=== PATIENT | male | born 1985 | race Two or more races ===

== ENCOUNTER 2017-04-04 11:34 | Emergency (ER) | payer OTHER ==
--- NOTE | 2017-04-04 12:30 | EDM.PDOC ---
ED HPI GENERAL MEDICAL PROBLEM - General Chief Complaint: Laceration Stated Complaint: RIGHT MIDDLE FINGER CUT WORK RELATED Time Seen by Provider: 04/04/17 11:35 Source of Information: Reports: Patient History Limitations: Reports: No Limitations - History of Present Illness INITIAL COMMENTS - FREE TEXT/NARRATIVE: HISTORY AND PHYSICAL: History of present illness: Patient is a 29-year-old male who presents to the emergency room with complaints of crush injury to the right second digit. Patient reports he was working with some heavy pipe and one fell onto the affected finger. Patient presented to the emergency room immediately after the injury. There is an obvious deformity noted to the affected finger with an open laceration noted to the palmar side. Reports that the finger is numb and he is unable to bend at either joint. Denies any other finger involvement. Able to move other fingers and wrist without difficulty. Patient states that his tetanus is updated within the last 4 years. Review of systems: As per history of present illness and below otherwise all systems reviewed and negative. Past medical history: As per history of present illness and as reviewed below otherwise noncontributory. Surgical history: As per history of present illness and as reviewed below otherwise noncontributory. Social history: No reported history of drug or alcohol abuse. Family history: As per history of present illness and as reviewed below otherwise noncontributory. Physical exam: Gen.: Nontoxic appearing 29-year-old male. Able to speak in full sentences without shortness of breath. Alert and oriented HEENT: Atraumatic, normocephalic, pupils reactive, negative for conjunctival pallor or scleral icterus, mucous membranes moist, throat clear, neck supple, nontender, trachea midline. Lungs: Clear to auscultation, breath sounds equal bilaterally, chest nontender. Heart: S1S2, regular, negative for clicks, rubs, or JVD. Abdomen: Soft, nondistended, nontender. Negative for masses or hepatosplenomegaly. Negative for costovertebral tenderness. Pelvis: Stable nontender. Genitourinary: Deferred. Rectal: Deferred. Extremities: Obvious deformity noted to the right second distal digit at the DIP joint, there is an open laceration on the palmar side below the DIP joint. Patient has limited movement of the affected finger. No other finger or extremity involvement. Neurovascular unremarkable. Neuro: Awake, alert, oriented. Cranial nerves II through XII unremarkable. Cerebellum unremarkable. Motor and sensory unremarkable throughout. Exam nonfocal. Upon patient's arrival a digital block was performed for comfort. Adding on x- ray prior to doing any interventions at this time. 1240- Dr. Shama Velasquez was consulted on this patient and will see the patient prior to performing a closed reduction. Patient has currently declined the Dilaudid, as he reports he is "fine at this time" and the digital block was "good enough". 1330- Dr. Velasquez is here to evaluate patient at this time. 1415- Dr. Velasquez repaired the affected finger and applied her own dressing. She has instructed me to provide the patient with a prescription for Keflex 500 mg 4 times a day 10 days and Hearne 11/23/24 one to 2 tabs every 4-6 hours as needed for pain dispense #40. She would like to see the patient on Monday and her nurse , Nabila, will call the patient with a clinic time. This was all discussed and reviewed with the patient he is aware and agreeable. Diagnostics: Finger and hand x-ray Therapeutics: Digital block IV fluid, Zofran, Ancef, Dilaudid Impression: Dislocation Definitive disposition and diagnosis as appropriate pending reevaluation and review of above. Onset: Today Onset Date: 04/04/17 Duration: Minutes: Location: Reports: Upper Extremity, Right - Related Data Allergies Allergy/AdvReac Type Severity Reaction Status Date / Time No Known Allergies Allergy Verified 04/04/17 13:38 Home Meds: Home Meds . [No Known Home Meds] 04/04/17 [History] ED ROS GENERAL - Review of Systems Review Of Systems: ROS reveals no pertinent complaints other than HPI. ED EXAM, SKIN/RASH Exam: See Below (See dictation) Course - Orders/Labs/Meds Meds: Medications Discontinued Medications Generic Name Dose Route Start Last Admin Trade Name Freq PRN Reason Stop Dose Admin Bupivacaine HCl 10 ml 04/04/17 13:45 Sensorcaine-Mpf 0.25% INJECT 04/04/17 13:46 ONETIME ONE Hydromorphone HCl 0.5 mg 04/04/17 12:32 Dilaudid IV 04/04/17 12:33 ONETIME ONE Cefazolin Sodium 2,000 mg/ 100 mls @ 100 mls/hr 04/04/17 12:33 04/04/17 13:40 Sodium Chloride IV 04/04/17 13:32 Not Given ONETIME ONE Sodium Chloride 1,000 mls @ 999 mls/hr 04/04/17 12:32 04/04/17 13:40 Normal Saline IV 04/04/17 13:32 Not Given STAT ONE Cefazolin Sodium/Dextrose 2 gm 50 mls @ 100 mls/hr 04/04/17 13:15 04/04/17 13 :15 / Premix IV 04/04/17 13:44 100 mls/hr ONETIME ONE Administration Lidocaine/Epinephrine 20 ml 04/04/17 13:46 Xylocaine 1% With Epinephrine 1:100,000 INJECT 04/04/17 13:47 ONETIME ONE Ondansetron HCl 4 mg 04/04/17 12:32 04/04/17 13:40 Zofran IVPUSH 04/04/17 12:33 Not Given ONETIME ONE Departure - Departure Time of Disposition: 14:43 Disposition: Home, Self-Care 01 Clinical Impression: Laceration Finger dislocation Qualifiers: Encounter type: initial encounter Qualified Code(s): S63.259A - Unspecified dislocation of unspecified finger, initial encounter - Discharge Information Referrals: PCP,None [Primary Care Provider] - Forms: ED Department Discharge Additional Instructions: The following information is given to patients seen in the emergency department who are being discharged to home. This information is to outline your options for follow-up care. We provide all patients seen in our emergency department with a follow-up referral. The need for follow-up, as well as the timing and circumstances, are variable depending upon the specifics of your emergency department visit. If you don't have a primary care physician on staff, we will provide you with a referral. We always advise you to contact your personal physician following an emergency department visit to inform them of the circumstance of the visit and for follow-up with them and/or the need for any referrals to a consulting specialist. The emergency department will also refer you to a specialist when appropriate. This referral assures that you have the opportunity for followup care with a specialist. All of these measure are taken in an effort to provide you with optimal care, which includes your followup. Under all circumstances we always encourage you to contact your private physician who remains a resource for coordinating your care. When calling for followup care, please make the office aware that this follow-up is from your recent emergency room visit. If for any reason you are refused follow-up, please contact the [facility] emergency department at and ask to speak to the emergency department charge nurse. [facility] Specialty clinic-Plastic Surgery and Hand Surgery Professional [address] [address] 1. These keep your dressing on as has directed. You have been in a prescription for Keflex please take this as directed over the next 10 days to prevent infection. A prescription for [place]ne which is a narcotic pain reliever as been scribed to as well he may take 1-2 tablets every 4-6 hours as needed for pain (#40) if he should have breakthrough pain he may take ibuprofen over- the-counter do not take additional acetaminophen. 2. Dr. Velasquez's nurse to call you with an appointment time. She would like to see you on Monday. 3. If he should have any concerns or signs of infection please follow-up with your primary care provider or the ED as needed as discussed.
[2017-04-04] MEDS ORDERED: Sodium Chloride 0.9% 1,000 ML IV ONE (12:32)
[2017-04-04] MEDS ORDERED: Ondansetron 4 MG/2 ML SDV IVPUSH ONE (12:32)
[2017-04-04] MEDS ORDERED: HYDROmorphone 1 MG/ML Syringe IV ONE (12:32)
--- NOTE | 2017-04-04 12:53 | CR ---
EXAMINATION: Right hand and right second digit HISTORY: crush injury COMPARISON: None TECHNIQUE: 2 views of the right hand and 3 views of the right second digit. FINDINGS: There is posterior dislocation of the second digit at the PIP joint. There is no definite f racture noted. Bone mineralization is otherwise unremarkable. The remaining osseous structures and shannon int spaces appear preserved. IMPRESSION: Posterior dislocation of the second digit the PIP joint.
[2017-04-04] MEDS ORDERED: ceFAZolin 2 GM in Premix Bag 1 BAG IV ONE (13:15)
[2017-04-04] MEDS ORDERED: Bupivacaine 0.25% 10 ML SDV INJECT ONE (13:45)
[2017-04-04] MEDS ORDERED: Lidocaine 1% with EPINEPHrine 1:100,000 20 ML MDV INJECT ONE (13:46)
[2017-04-04 15:20] VITALS: BP 135/90
--- NOTE | 2017-04-04 15:55 | PCM.OPNOTE ---
- General Post-Op/Procedure Note Date of Surgery/Procedure: 04/04/17 Operative Procedure(s): open reduction of right pip joint open dislocation with repair of extensor tendon Pre Op Diagnosis: open pip joint dislocation right index finger Post-Op Diagnosis: Same with extensor tendon laceration Anesthesia Technique: Local Primary Surgeon: Shama Velasquez Deliverer Merchandise: Keesha Mak Complications: None Condition: Good Free Text/Narrative:: [id number]
--- NOTE | 2017-04-04 22:03 | OR ---
SURGEON: NEELAM CHAMPION MD DATE OF PROCEDURE: 04/04/2017 PREOPERATIVE DIAGNOSIS: Right index finger proximal interphalangeal joint dislocation open with extensor tendon laceration. POSTOPERATIVE DIAGNOSIS: Right index finger proximal interphalangeal joint dislocation open with extensor tendon laceration. PROCEDURES: Open reduction of proximal interphalangeal joint dislocation and repair of extensor tendon. [employer]: None. INDICATIONS: Mr. Simon is a 31-year-old gentleman who is seen in the emergency room for a dislocation, crush injury to the right index finger. It was a PIP joint dislocation that is open. In addition, the extensor tendon is split. We discussed options and risks and benefits of repair here versus in the operating room. He was then copiously irrigated and my recommendation would be to copiously irrigate the area, review and repair this. He was in agreement to proceed and would like to do this in the emergency room. Risks were including, but not limited to, bleeding, infection, damage to underlying or overlying structures, possible need for future interventions, and possible scarring. PROCEDURE IN DETAIL: After informed consent was obtained verbally from the patient, the area was anesthetized with 0.25% Marcaine and 1% lidocaine with epi in a digital block. After adequate anesthesia, the area was copiously irrigated with 3 bottles of saline and 1 bottle of Betadine. This was done after the patient had been soaking in a chlorhexidine solution for at least 1/2 an hour. Once adequately irrigated, attention was then paid to prepping with Betadine and open reduction with traction. The tendons were held laterally, well reduced in order to maintain these out of the joint space and inappropriate alignment. Once adequately reduced, the finger was brought through range of motion and the flexor tendons were appreciated to be intact. The extensor tendon was split with longitudinal disruption. We discussed options and after copious irrigation with another spray bottle of saline, the extensor tendon was repaired using a single deep [id number] 4-0 Prolene suture. Once reapproximated, attention was then paid to closure of the skin. The skin edges were trimmed and reapproximated using 4-0 Prolene stitches in a horizontal mattress fashion. The patient tolerated this well and was placed in a short-arm volar splint. He tolerated this well. All counts of needles were correct at the end of the case. FOLLOWUP INSTRUCTIONS: The patient will see us in Monday in clinic for reevaluation or sooner with any problems, questions, or concerns. He was given a prescription for [place] and Keflex and was given our contact information with any issues or concerns. HEGGTKEIKO / YEVGENIY /[id number] MTDD
== END 2017-04-04 15:15 | disposition home or self-care (01) ==
LOC: MW.ED 11:34
DX: S63.280A Dislocation of proximal interphalangeal joint of right index finger, initial encounter (principal); S61.210A Laceration without foreign body of right index finger without damage to nail, initial encounter; W20.8XXA Other cause of strike by thrown, projected or falling object, initial encounter; Y93.89 Activity, other specified; Y99.0 Civilian activity done for income or pay
CPT/HCPCS: 26770; 73120; 73140; 96365; 99284; J0690; 99283

== ENCOUNTER 2017-07-21 11:08 | Emergency (ER) | payer OTHER ==
[2017-07-21 11:24] VITALS: BP 146/80
[2017-07-21] MEDS ORDERED: predniSONE 10 MG Tab PO ONE (11:35)
[2017-07-21] MEDS ORDERED: valACYclovir 500 MG Tab PO ONE (11:35)
--- NOTE | 2017-07-21 11:39 | EDM.PDOC ---
ED HPI GENERAL MEDICAL PROBLEM - General Chief Complaint: Neurological Problem Stated Complaint: LT SIDE OF FACE IS NUMB Time Seen by Provider: 07/21/17 11:30 Source of Information: Reports: Patient History Limitations: Reports: No Limitations - History of Present Illness INITIAL COMMENTS - FREE TEXT/NARRATIVE: History of present illness: [31-year-old male presents with complaints of left-sided facial weakness and droop. Patient indicates that he noticed this starting last night without improvement today so comes in seeking help] Review of systems: As per history of present illness and below otherwise all systems reviewed and negative. Past medical history: As per history of present illness and as reviewed below otherwise noncontributory. Surgical history: As per history of present illness and as reviewed below otherwise noncontributory. Social history: No reported history of drug or alcohol abuse. Family history: As per history of present illness and as reviewed below otherwise noncontributory. Physical exam: HEENT: Atraumatic, left sided facial droop consistent with Ye's palsy patients level of drooping and paralysis is consistent with House-Brackman scoring of grade , othernwise normocephalic, pupils reactive, negative for conjunctival pallor or scleral icterus, mucous membranes moist, throat clear, neck supple, nontender, trachea midline. Lungs: Clear to auscultation, breath sounds equal bilaterally, chest nontender. Heart: S1S2, regular, negative for clicks, rubs, or JVD. Abdomen: Soft, nondistended, nontender. Negative for masses or hepatosplenomegaly. Negative for costovertebral tenderness. Pelvis: Stable nontender. Genitourinary: Deferred. Rectal: Deferred. Extremities: Atraumatic, negative for cords or calf pain. Neurovascular unremarkable. Neuro: Awake, alert, oriented. Cranial nerves II through XII unremarkable. Cerebellum unremarkable. Motor and sensory unremarkable throughout. Exam nonfocal. Diagnostics: [] Therapeutics: [Prednisone 80 mg, valacyclovir thousand milligrams] Impression: [#1 New onset Ye's palsy less than 72 hours] Plan: [Rx for daily prednisone 10 days as well as valacyclovir 10 days] Definitive disposition and diagnosis as appropriate pending reevaluation and review of above. Left Face/Jaw Pain Score (Numeric/FACES): 5 - Related Data Allergies Allergy/AdvReac Type Severity Reaction Status Date / Time No Known Allergies Allergy Verified 07/21/17 11:20 Home Meds: Home Meds predniSONE [Prednisone] 80 mg PO DAILY #40 tablet 07/21/17 [Rx] valACYclovir HCl [valACYclovir] 1,000 mg PO TID #30 tablet 07/21/17 [Rx] Past Medical History - Past Health History Medical/Surgical History: Denies Medical/Surgical History Social & Family History - Family History Family Medical History: Noncontributory - Tobacco Use Smoking Status *Q: Never Smoker Second Hand Smoke Exposure: No - Recreational Drug Use Recreational Drug Use: No ED ROS GENERAL - Review of Systems Review Of Systems: See Below (The history of present illness) ED EXAM, GENERAL - Physical Exam Exam: See Below (See history of present illness) Course - Vital Signs Last Recorded V/S: Last Vital Signs Temp 36.7 C 07/21/17 11:20 Pulse 76 07/21/17 11:20 Resp 18 07/21/17 11:20 BP 146/80 H 07/21/17 11:20 Pulse Ox 98 07/21/17 11:20 Departure - Departure Time of Disposition: 11:42 Disposition: Home, Self-Care 01 Condition: Good Clinical Impression: Facial paralysis/[place] palsy - Discharge Information Referrals: PCP,None [Primary Care Provider] - Additional Instructions: The following information is given to patients seen in the emergency department who are being discharged to home. This information is to outline your options for follow-up care. We provide all patients seen in our emergency department with a follow-up referral. The need for follow-up, as well as the timing and circumstances, are variable depending upon the specifics of your emergency department visit. If you don't have a primary care physician on staff, we will provide you with a referral. We always advise you to contact your personal physician following an emergency department visit to inform them of the circumstance of the visit and for follow-up with them and/or the need for any referrals to a consulting specialist. The emergency department will also refer you to a specialist when appropriate. This referral assures that you have the opportunity for follow-up care with a specialist. All of these measure are taken in an effort to provide you with optimal care, which includes your follow-up. Under all circumstances we always encourage you to contact your private physician who remains a resource for coordinating your care. When calling for follow-up care, please make the office aware that this follow-up is from your recent emergency room visit. If for any reason you are refused follow-up, please contact the [facility] Emergency Department at and asked to speak to the emergency department charge nurse. Take medication as directed Follow-up with PCP in 3-5 days Return to ED as needed as discussed
== END 2017-07-21 12:07 | disposition home or self-care (01) ==
LOC: MW.ED 11:08
DX: G51.0 Bell's palsy (principal); Z79.899 Other long term (current) drug therapy
CPT/HCPCS: 99283; A9270; 99282

== ENCOUNTER 2018-04-03 14:25 | Emergency (ER) | payer OTHER ==
[2018-04-03] MEDS ORDERED: Bupivacaine 0.5% 10 ML SDV INJECT ONE (14:52)
[2018-04-03] MEDS ORDERED: ceFAZolin 1 GM Vial IM ONE (15:23)
[2018-04-03] MEDS ORDERED: Water For Injection, Sterile 20 ML ONE (15:35)
--- NOTE | 2018-04-03 15:35 | CR ---
EXAMINATION: Right thumb HISTORY: Partial amputation COMPARISON: 04/04/2017 TECHNIQUE: 3 views FINDINGS/IMPRESSION: There is a comminuted fracture through the mid to distal first phalanx with an o verlying cutaneous defect. The fractures are mildly displaced. Remaining osseous structures and joint spaces appear preserved.
[2018-04-03] MEDS ORDERED: Bacitracin Oint 1 GM U/D Packet TOP ONE (16:17)
--- NOTE | 2018-04-03 16:22 | EDM.PDOC ---
ED HPI GENERAL MEDICAL PROBLEM - General Chief Complaint: Upper Extremity Injury/Pain Stated Complaint: PT INJURY FINGER ON HIS RT HAND Time Seen by Provider: 04/03/18 14:38 Source of Information: Reports: Patient, RN Notes Reviewed History Limitations: Reports: No Limitations - History of Present Illness INITIAL COMMENTS - FREE TEXT/NARRATIVE: History of present illness: []Patient is a [id number] male crushed his right thumb between elevator pipe and another pipe. Patient's last tetanus shot was 3 years ago. He denies any other injuries. Review of systems: As per history of present illness and below otherwise all systems reviewed and negative. Past medical history: As per history of present illness and as reviewed below otherwise noncontributory. Surgical history: As per history of present illness and as reviewed below otherwise noncontributory. Social history: No reported history of drug or alcohol abuse. Family history: As per history of present illness and as reviewed below otherwise noncontributory. Physical exam: General: Well developed, well nourished in NAD HEENT: Atraumatic, normocephalic, pupils reactive, negative for conjunctival pallor or scleral icterus, mucous membranes moist, throat clear, neck supple, nontender, trachea midline. Lungs: Clear to auscultation, breath sounds equal bilaterally, chest nontender. Heart: S1S2, regular, negative for clicks, rubs, or JVD. Abdomen: Soft, nondistended, nontender. Negative for masses or hepatosplenomegaly. Negative for costovertebral tenderness. Pelvis: Stable nontender. Genitourinary: Deferred. Rectal: Deferred. Extremities: Open laceration right distal thumb with bone exposed. negative for cords or calf pain. Neurovascular unremarkable. Neuro: Awake, alert, oriented. Cranial nerves II through XII unremarkable. Cerebellum unremarkable. Motor and sensory unremarkable throughout. Exam nonfocal. Skin:warm and dry Diagnostics: X-ray Therapeutics: Ancef 1 g IM ED Course: Discussed case with Dr. Coleen Martin will follow up him in his office tomorrow. Impression: open fracture right distal phalanx Prescriptions: Keflex, Ultram Plan: Follow-up with Dr. Atif Martin Definitive disposition and diagnosis as appropriate pending reevaluation and review of above. Right Hand Pain Score (Numeric/FACES): 3 - Related Data Allergies Allergy/AdvReac Type Severity Reaction Status Date / Time No Known Allergies Allergy Verified 07/21/17 11:20 Home Meds: Home Meds cephALEXin [Keflex] 500 mg PO Q8H #21 cap 04/03/18 [Rx] traMADol HCl [Tramadol HCl] 50 mg PO Q6H PRN #16 tablet 04/03/18 [Rx] Past Medical History - Past Health History Medical/Surgical History: Denies Medical/Surgical History - Infectious Disease History Infectious Disease History: Reports: None Social & Family History - Family History Family Medical History: Noncontributory - Tobacco Use Smoking Status *Q: Never Smoker Second Hand Smoke Exposure: No - Recreational Drug Use Recreational Drug Use: No Review of Systems - Review of Systems Review Of Systems: ROS reveals no pertinent complaints other than HPI. ED EXAM, GENERAL - Physical Exam Exam: See Below (See history of present illness) ED TRAUMA EXTREMITY PROCEDURES - Laceration/Wound Repair Right Digit - 1st (Thumb) Lac/Wound Length In cm: 3 Appearance: Muscle, Irregular, Mildly Contaminated, Moderately Contaminated Distal NVT: Neuro & Vascular Intact Anesthetic Type: Digital Local Anesthesia - Lidocaine (Xylocaine): 1% Plain Local Anesthesia - Bupivicaine (Marcaine): 0.5% Plain Local Anesthetic Volume: 4cc Skin Prep: Chlorhexidine (Hibiciens) Closed With: Sutures Suture Size: 4-0 Suture Type: Nylon Drain Placement: No Sterile Dressing Applied: Nurse Tetanus Status Addressed: Yes Complications: No Course - Vital Signs Last Recorded V/S: Last Vital Signs Temp 98.5 F 04/03/18 15:01 Pulse 78 04/03/18 15:01 Resp 18 04/03/18 15:01 BP 144/93 H 04/03/18 15:01 Pulse Ox 99 04/03/18 15:01 - Orders/Labs/Meds Meds: Medications Discontinued Medications Generic Name Dose Route Start Last Admin Trade Name Freq PRN Reason Stop Dose Admin Bacitracin 1 dose 04/03/18 16:17 Bacitracin Oint 1 Gm TOP 04/03/18 16:18 ONETIME ONE Bupivacaine HCl 10 ml 04/03/18 14:52 04/03/18 15:18 Sensorcaine-Mpf 0.5% INJECT 04/03/18 14:53 10 ml ONETIME ONE Administration Cefazolin Sodium 1 gm 04/03/18 15:23 04/03/18 15:38 Ancef IM 04/03/18 15:24 1 gm ONETIME ONE Administration Lidocaine HCl Confirm 04/03/18 14:54 04/03/18 15:18 Xylocaine-Mpf 1% Administered 04/03/18 14:55 Not Given Dose 5 mls @ as directed .ROUTE .STK-MED ONE Sterile Water Confirm 04/03/18 15:35 04/03/18 15:39 Sterile Water For Injection Administered 04/03/18 15:36 2.5 mls/hr Dose Administration 20 mls @ as directed .ROUTE .STK-MED ONE Lidocaine HCl 5 ml 04/03/18 14:52 04/03/18 15:18 Xylocaine-Mpf 1% INJECT 04/03/18 14:53 5 ml ONETIME ONE Administration Departure - Departure Time of Disposition: 16:21 Disposition: Home, Self-Care 01 Condition: Good Clinical Impression: Open fracture of right thumb Qualifiers: Encounter type: initial encounter Phalanx: distal Fracture alignment: displaced Qualified Code(s): S62.521B - Displaced fracture of distal phalanx of right thumb, initial encounter for open fracture - Discharge Information *PRESCRIPTION DRUG MONITORING PROGRAM REVIEWED*: No *COPY OF PRESCRIPTION DRUG MONITORING REPORT IN PATIENT TERE: No Prescriptions: cephALEXin [Keflex] 500 mg PO Q8H #21 cap traMADol HCl [Tramadol HCl] 50 mg PO Q6H PRN #16 tablet PRN Reason: Pain Referrals: PCP,None [Primary Care Provider] - Forms: ED Department Discharge Additional Instructions: The following information is given to patients seen in the emergency department who are being discharged to home. This information is to outline your options for follow-up care. We provide all patients seen in our emergency department with a follow-up referral. The need for follow-up, as well as the timing and circumstances, are variable depending upon the specifics of your emergency department visit. If you don't have a primary care physician on staff, we will provide you with a referral. We always advise you to contact your personal physician following an emergency department visit to inform them of the circumstance of the visit and for follow-up with them and/or the need for any referrals to a consulting specialist. The emergency department will also refer you to a specialist when appropriate. This referral assures that you have the opportunity for follow-up care with a specialist. All of these measure are taken in an effort to provide you with optimal care, which includes your follow-up. Under all circumstances we always encourage you to contact your private physician who remains a resource for coordinating your care. When calling for follow-up care, please make the office aware that this follow-up is from your recent emergency room visit. If for any reason you are refused follow-up, please contact the [facility] Emergency Department at and asked to speak to the emergency department charge nurse. Ultram for pain take Keflex as directed return if any symptoms worsen or change. Please follow-up with Dr. Srivastava and call his office at 8 AM tomorrow morning for an afternoon appointment tomorrow or the next day. [phone]
[2018-04-03 16:42] VITALS: BP 112/78
== END 2018-04-03 16:43 | disposition home or self-care (01) ==
LOC: MW.ED 14:25
DX: S62.521B Displaced fracture of distal phalanx of right thumb, initial encounter for open fracture (principal); W23.1XXA Caught, crushed, jammed, or pinched between stationary objects, initial encounter
CPT/HCPCS: 12001; 73140; 96372; 99283; J0690; J3490

== ENCOUNTER 2024-09-02 15:16 | Inpatient (IN) | payer OTHER ==
[2024-09-02 15:44] LABS: BASOPHILS ABSOLUTE AUTO 0.13 K/uL (0.00-0.20); BASOPHILS PERCENT AUTO 0.6 % (0.0-1.0); EOSINOPHILS ABSOLUTE AUTO 0.01 K/uL (0.00-0.45); HEMATOCRIT 54.5 % (42.0-52.0); HEMOGLOBIN 19.8 g/dL (14.0-18.0); IMMATURE GRAN ABSOLUTE AUTO 0.21 K/uL (0.00-0.05); LYMPHOCYTES ABSOLUTE AUTO 2.53 K/uL (1.00-4.80); LYMPHOCYTES PERCENT AUTO 11.8 % (24.0-44.0); MEAN CORPUSCULAR HEMOGLOBIN 30.7 pg (28.0-32.0); MEAN CORPUSCULAR HGB CONC 36.3 g/dL (32.0-36.0); MEAN CORPUSCULAR VOLUME 84.4 fL (83.0-99.0); MEAN PLATELET VOLUME 10.2 fL (9.4-12.4); MONOCYTES ABSOLUTE AUTO 1.04 K/uL (0.00-0.80); MONOCYTES PERCENT AUTO 4.9 % (0.0-8.0); NEUTROPHILS ABSOLUTE AUTO 17.47 K/uL (1.80-7.70); NEUTROPHILS PERCENT AUTO 81.7 % (41.0-71.0); PLATELET COUNT,PLT 301 K/uL (150-400); RED BLOOD CELL COUNT 6.46 M/uL (4.52-5.90); WHITE BLOOD CELL COUNT,WBC 21.39 K/uL (3.9-11.3)
[2024-09-02] MEDS: Iopamidol 755 MG/ML 500 ML Multipack Bottle IVPUSH STA (16:52)
[2024-09-02] MEDS: Sodium Chloride 0.9% 1,000 ML IV ONE ×3 (17:19→21:10)
[2024-09-02] MEDS: Ondansetron 4 MG/2 ML SDV IVPUSH ONE (18:06)
[2024-09-02] MEDS: Morphine 4 MG/ML Syringe IVPUSH ONE (18:06)
[2024-09-02 18:21] LABS: A/G RATIO 0.7 (0.9-1.6); BILIRUBIN TOTAL 1.7 mg/dL (0.2-1.0); CALCIUM 9.7 mg/dL (8.5-10.1); CREATININE 1.4 mg/dL (0.8-1.3); EST CRCL DRUG DOSING (CG) 75.32 mL/min; MAGNESIUM 2.7 mg/dL (1.8-2.4); POTASSIUM,K 5.7 mmol/L (3.5-5.1); PROTEIN TOTAL,TP 9.5 g/dL (6.4-8.2)
[2024-09-02] MEDS ORDERED: Thiamine 200 MG/2 ML MDV IVPUSH ONE (18:38)
[2024-09-02 18:47] LABS: LACTIC ACID 0.7 mmol/L (0.4-2.0)
[2024-09-02 18:56] LABS: HEMOGLOBIN A1C 9.2 %
[2024-09-02 19:08] LABS: PH,VENOUS 7.2 (7.31-7.41)
[2024-09-02] MEDS: Thiamine 500 MG in Sodium Chloride 0.9% 250 ML IV ONE (19:49)
[2024-09-02] MEDS ORDERED: 50% Dextrose in Water 50 ML Syringe IVPUSH PRN (20:13)
[2024-09-02] MEDS ORDERED: Glucagon,Human Recombinant 1 MG Vial IM PRN (20:13)
[2024-09-02 20:47] LABS: CALCIUM 8.4 mg/dL (8.5-10.1); CARBON DIOXIDE,CO2 8.4 mmol/L (21.0-32.0); CREATININE 1.3 mg/dL (0.8-1.3); EST CRCL DRUG DOSING (CG) 81.11 mL/min; POTASSIUM,K 5.7 mmol/L (3.5-5.1)
[2024-09-02] MEDS ORDERED: Acetaminophen 325 MG Tab PO PRN (21:02)
[2024-09-02] MEDS ORDERED: Acetaminophen 650 MG Supp RECTAL PRN (21:02)
[2024-09-02] MEDS ORDERED: Polyethylene Glycol 3350 Powder 17 GM Packet PO PRN (21:02)
[2024-09-02] MEDS ORDERED: Ondansetron 4 MG/2 ML SDV IVPUSH PRN (21:02)
[2024-09-02] MEDS: Insulin Regular in 0.9 % NACL 100 ML IV SCH (21:12)
[2024-09-02] MEDS ORDERED: LORazepam 2 MG/ML SDV IVPUSH PRN (21:27)
[2024-09-02] MEDS ORDERED: LORazepam 1 MG Tab PO PRN ×2 (21:27→21:30)
[2024-09-02] MEDS ORDERED: Piperacillin/Tazobactam 4.5 GM in Sodium Chloride 0.9% 100 ML IV SCH (21:30)
[2024-09-02 21:41] LABS: APPEARANCE,URINE CLEAR; COLOR,URINE YELLOW; GLUCOSE,URINE 500 mg/dL (NEGATIVE); KETONES,URINE >=80 mg/dL (NEGATIVE); LEUKOCYTE ESTERASE,URINE NEGATIVE (NEGATIVE); NITRITE,URINE NEGATIVE (NEGATIVE); OCCULT BLOOD,URINE MODERATE (NEGATIVE); PH,URINE 5.5 (5.0-8.0); PROTEIN,URINE 100 mg/dL (NEGATIVE); UROBILINOGEN,URINE 0.2 EU/dL (<2.0)
[2024-09-02 21:42] LABS: BILIRUBIN,URINE SMALL (NEGATIVE)
[2024-09-02 21:57] LABS: BACTERIA,URINE NOT SEEN (NEGATIVE); EPITHELIAL CELLS,URINE RARE (NONE-FEW); WBC,URINE 0-1 (0-5/HPF)
[2024-09-02] MEDS: Dextrose 5%-0.45% NaCl 1,000 ML IV SCH (21:57)
[2024-09-02 23:36] LABS: CALCIUM 8.8 mg/dL (8.5-10.1); CARBON DIOXIDE,CO2 10.4 mmol/L (21.0-32.0); CREATININE 1.1 mg/dL (0.8-1.3); EST CRCL DRUG DOSING (CG) 95.86 mL/min; MAGNESIUM 2.4 mg/dL (1.8-2.4); POTASSIUM,K 4.8 mmol/L (3.5-5.1)
[2024-09-02 23:59] VITALS: PULSE 115
[2024-09-03] MEDS: Enoxaparin 40 MG/0.4 ML Syringe SUBCUT SCH (00:48)
[2024-09-03] MEDS: Folic Acid 1 MG/0.2 ML UD Syringe IV SCH (00:55)
[2024-09-03] MEDS: Pantoprazole 40 MG in Sodium Chloride 0.9% 10 ML IVPUSH SCH (00:57)
[2024-09-03] MEDS: Piperacillin/Tazobactam 4.5 GM in Sodium Chloride 0.9% 100 ML IV ONE (01:01)
[2024-09-03] MEDS ORDERED: Piperacillin/Tazobactam 4.5 GM in Sodium Chloride 0.9% 100 ML IV SCH ×2 (02:00→09:00)
[2024-09-03 03:38] LABS: CALCIUM 8.4 mg/dL (8.5-10.1); CARBON DIOXIDE,CO2 14.8 mmol/L (21.0-32.0); CREATININE 1.1 mg/dL (0.8-1.3); EST CRCL DRUG DOSING (CG) 95.86 mL/min; POTASSIUM,K 4.3 mmol/L (3.5-5.1)
[2024-09-03 06:46] LABS: BASOPHILS ABSOLUTE AUTO 0.06 K/uL (0.00-0.20); BASOPHILS PERCENT AUTO 0.5 % (0.0-1.0); EOSINOPHILS ABSOLUTE AUTO 0.02 K/uL (0.00-0.45); EOSINOPHILS PERCENT AUTO 0.2 % (0.0-6.0); HEMATOCRIT 44.7 % (42.0-52.0); IMMATURE GRAN PERCENT AUTO 0.8 % (0.0-0.4); LYMPHOCYTES ABSOLUTE AUTO 1.88 K/uL (1.00-4.80); LYMPHOCYTES PERCENT AUTO 14.5 % (24.0-44.0); MEAN CORPUSCULAR HEMOGLOBIN 29.9 pg (28.0-32.0); MEAN CORPUSCULAR HGB CONC 35.8 g/dL (32.0-36.0); MEAN CORPUSCULAR VOLUME 83.6 fL (83.0-99.0); MEAN PLATELET VOLUME 9.8 fL (9.4-12.4); MONOCYTES ABSOLUTE AUTO 0.57 K/uL (0.00-0.80); MONOCYTES PERCENT AUTO 4.4 % (0.0-8.0); NEUTROPHILS ABSOLUTE AUTO 10.38 K/uL (1.80-7.70); NEUTROPHILS PERCENT AUTO 79.6 % (41.0-71.0); PLATELET COUNT,PLT 169 K/uL (150-400); RED BLOOD CELL COUNT 5.35 M/uL (4.52-5.90); WHITE BLOOD CELL COUNT,WBC 13.01 K/uL (3.9-11.3)
[2024-09-03 07:15] LABS: CALCIUM 8.6 mg/dL (8.5-10.1); CARBON DIOXIDE,CO2 14.9 mmol/L (21.0-32.0); EST CRCL DRUG DOSING (CG) 105.44 mL/min; POTASSIUM,K 3.8 mmol/L (3.5-5.1)
[2024-09-03 07:19] LABS: MAGNESIUM 2.1 mg/dL (1.8-2.4); PHOSPHORUS 2.3 mg/dL (2.6-4.7)
[2024-09-03] MEDS ORDERED: Ketorolac 30 MG/ML SDV IVPUSH PRN (07:35)
[2024-09-03] MEDS ORDERED: 50% Dextrose in Water 50 ML Syringe IVPUSH PRN (08:46)
[2024-09-03] MEDS ORDERED: Glucagon,Human Recombinant 1 MG Vial IM PRN (08:46)
[2024-09-03] MEDS ORDERED: Thiamine 100 MG in Sodium Chloride 0.9% 100 ML IV SCH (09:00)
[2024-09-03] MEDS: Insulin Regular in 0.9 % NACL 100 ML IV SCH (09:15)
[2024-09-03] MEDS: Sodium Chloride 0.9% 1,000 ML IV ONE (09:16)
[2024-09-03] MEDS: Thiamine 200 MG/2 ML MDV IVPUSH SCH (09:16)
[2024-09-03 09:18] LABS: CHOLESTEROL HDL 37 mg/dL (40-60); CHOLESTEROL TOTAL 302 mg/dL (50-200)
[2024-09-03 09:34] LABS: TRIGLYCERIDES 642 mg/dL (0-200)
[2024-09-03] MEDS: Potassium Phosphates 15 MMOLE in Sodium Chloride 0.9% 250 ML IV ONE (09:37)
[2024-09-03] MEDS ORDERED: Naloxone 0.4 MG/ML SDV IVPUSH PRN (09:40)
[2024-09-03] MEDS ORDERED: Ondansetron 4 MG/2 ML SDV IVPUSH PRN (11:41)
[2024-09-03 11:45] LABS: CALCIUM 8.3 mg/dL (8.5-10.1); CARBON DIOXIDE,CO2 17.5 mmol/L (21.0-32.0); EST CRCL DRUG DOSING (CG) 105.44 mL/min; POTASSIUM,K 3.7 mmol/L (3.5-5.1)
[2024-09-03] MEDS: HYDROmorphone 0.5 MG/0.5 ML Syringe IVPUSH PRN (11:55)
[2024-09-03 16:05] LABS: CARBON DIOXIDE,CO2 18.2 mmol/L (21.0-32.0); CREATININE 0.9 mg/dL (0.8-1.3); EST CRCL DRUG DOSING (CG) 117.16 mL/min; POTASSIUM,K 3.3 mmol/L (3.5-5.1)
[2024-09-03] MEDS: D5 1/2 NS w/ 40 mEq/L KCl 1,000 ML IV SCH (16:47)
[2024-09-03 19:39] LABS: BLOOD UREA NITROGEN,BUN 7 mg/dL (7.0-18.0); CALCIUM 8.1 mg/dL (8.5-10.1); CARBON DIOXIDE,CO2 18.5 mmol/L (21.0-32.0); CHLORIDE,CL 100 mmol/L (98-107); CHOLESTEROL HDL 41 mg/dL (40-60); CHOLESTEROL TOTAL 288 mg/dL (50-200); CREATININE 0.8 mg/dL (0.8-1.3); EST CRCL DRUG DOSING (CG) 131.81 mL/min; GLUCOSE RANDOM 214 mg/dL (74-106); POTASSIUM,K 3.4 mmol/L (3.5-5.1); SODIUM,NA 132 mmol/L (136-148)
[2024-09-03 19:40] LABS: ESTIMATED GFR 118 mL/min (>60); TRIGLYCERIDES 417 mg/dL (0-200)
[2024-09-03] MEDS: Melatonin 3 MG Tab PO PRN (20:40)
[2024-09-03 23:17] LABS: CALCIUM 8.1 mg/dL (8.5-10.1); CARBON DIOXIDE,CO2 19.6 mmol/L (21.0-32.0); CREATININE 0.8 mg/dL (0.8-1.3); EST CRCL DRUG DOSING (CG) 131.81 mL/min; POTASSIUM,K 3.2 mmol/L (3.5-5.1)
[2024-09-04] MEDS: Potassium Chloride 20 MEQ in Premix Bag 1 BAG IV ONE (00:50)
[2024-09-04] MEDS: Potassium Chloride 10 MEQ in Premix Bag 1 BAG IV SCH ×2 (00:52→10:18)
[2024-09-04 03:30] LABS: CALCIUM 8.1 mg/dL (8.5-10.1); CARBON DIOXIDE,CO2 19.5 mmol/L (21.0-32.0); CREATININE 0.7 mg/dL (0.8-1.3); EST CRCL DRUG DOSING (CG) 150.63 mL/min; POTASSIUM,K 3.4 mmol/L (3.5-5.1)
[2024-09-04 07:44] LABS: BLOOD UREA NITROGEN,BUN 7 mg/dL (7.0-18.0); CALCIUM 8.2 mg/dL (8.5-10.1); CARBON DIOXIDE,CO2 21.8 mmol/L (21.0-32.0); CHLORIDE,CL 102 mmol/L (98-107); CHOLESTEROL HDL 40 mg/dL (40-60); CHOLESTEROL TOTAL 304 mg/dL (50-200); CREATININE 0.8 mg/dL (0.8-1.3); EST CRCL DRUG DOSING (CG) 131.81 mL/min; GLUCOSE RANDOM 202 mg/dL (74-106); MAGNESIUM 1.9 mg/dL (1.8-2.4); PHOSPHORUS 2.6 mg/dL (2.6-4.7); POTASSIUM,K 3.2 mmol/L (3.5-5.1); SODIUM,NA 134 mmol/L (136-148)
[2024-09-04 07:45] LABS: ESTIMATED GFR 118 mL/min (>60); TRIGLYCERIDES 443 mg/dL (0-200)
[2024-09-04] MEDS ORDERED: Glucagon,Human Recombinant 1 MG Vial IM PRN (09:25)
[2024-09-04] MEDS ORDERED: 50% Dextrose in Water 50 ML Syringe IVPUSH PRN (09:25)
[2024-09-04] MEDS: Potassium Chloride 20 MEQ Tab.ER PO ONE (10:18)
[2024-09-04] MEDS: Insulin Glargine,Hum.Rec.Anlog 100 UNIT/ML 3 ML Pen SUBCUT SCH (10:20)
[2024-09-04] MEDS: Insulin Aspart 100 Units/ML 3 ML Pen SUBCUT SCH (11:31)
[2024-09-04] MEDS: oxyCODONE 5 MG Tab PO PRN (20:42)
[2024-09-04] MEDS: Fenofibrate,Micronized 67 MG Cap PO SCH (20:42)
[2024-09-05 06:11] LABS: BASOPHILS ABSOLUTE AUTO 0.02 K/uL (0.00-0.20); BASOPHILS PERCENT AUTO 0.3 % (0.0-1.0); EOSINOPHILS ABSOLUTE AUTO 0.12 K/uL (0.00-0.45); EOSINOPHILS PERCENT AUTO 1.8 % (0.0-6.0); HEMATOCRIT 40.4 % (42.0-52.0); HEMOGLOBIN 14.6 g/dL (14.0-18.0); IMMATURE GRAN ABSOLUTE AUTO 0.05 K/uL (0.00-0.05); IMMATURE GRAN PERCENT AUTO 0.8 % (0.0-0.4); LYMPHOCYTES PERCENT AUTO 34.8 % (24.0-44.0); MEAN CORPUSCULAR HEMOGLOBIN 29.9 pg (28.0-32.0); MEAN CORPUSCULAR HGB CONC 36.1 g/dL (32.0-36.0); MEAN CORPUSCULAR VOLUME 82.6 fL (83.0-99.0); MEAN PLATELET VOLUME 9.9 fL (9.4-12.4); MONOCYTES ABSOLUTE AUTO 0.45 K/uL (0.00-0.80); MONOCYTES PERCENT AUTO 6.8 % (0.0-8.0); NEUTROPHILS ABSOLUTE AUTO 3.67 K/uL (1.80-7.70); NEUTROPHILS PERCENT AUTO 55.5 % (41.0-71.0); PLATELET COUNT,PLT 186 K/uL (150-400); RED BLOOD CELL COUNT 4.89 M/uL (4.52-5.90); WHITE BLOOD CELL COUNT,WBC 6.61 K/uL (3.9-11.3)
[2024-09-05 06:28] LABS: CALCIUM 8.9 mg/dL (8.5-10.1); CARBON DIOXIDE,CO2 27.3 mmol/L (21.0-32.0); CREATININE 0.8 mg/dL (0.8-1.3); EST CRCL DRUG DOSING (CG) 131.81 mL/min; MAGNESIUM 1.9 mg/dL (1.8-2.4); POTASSIUM,K 3.1 mmol/L (3.5-5.1)
[2024-09-05] MEDS: Potassium Chloride 20 MEQ Tab.ER PO ONE ×2 (08:10→11:11)
[2024-09-05] MEDS: Thiamine 100 MG Tab PO ONE (08:50)
[2024-09-05] MEDS: Folic Acid 1 MG Tab PO ONE (08:50)
[2024-09-05 11:24] VITALS: BP 119/71
[2024-09-05] MEDS ORDERED: Insulin Glargine,Hum.Rec.Anlog 100 UNIT/ML 3 ML Pen SUBCUT SCH (21:00)
== END 2024-09-05 12:15 | disposition home or self-care (01) | DRG 637 ==
LOC: MW.ED 15:16 → MW.ICU 21:03
PROVIDERS: ADMIT Family Medicine; ATTEND Family Medicine
DX: E11.10 Type 2 diabetes mellitus with ketoacidosis without coma (principal); K85.20 Alcohol induced acute pancreatitis without necrosis or infection; E87.1 Hypo-osmolality and hyponatremia; F10.10 Alcohol abuse, uncomplicated; R79.89 Other specified abnormal findings of blood chemistry; E78.1 Pure hyperglyceridemia; E83.39 Other disorders of phosphorus metabolism; E86.0 Dehydration
CPT/HCPCS: 36415; 74177; 74177-26; 76705; 76705-26; 80048; 80053; 80061; 81001; 82009; 82803; 82947; 83036; 83605; 83690; 83735; 84100; 85025; 87040; 87428-QW; 87651-QW; 93005; A9270-GY; J1650; J1815; J1815-GY; J2270; J2405; J2470; J2543; J3411; J3480; J3490; J7030; J7799; Q9967